=== PATIENT | female | born 1990 | race Caucasian/White ===

== ENCOUNTER 2018-08-08 10:00 | Inpatient (IN) | payer MEDICAID ==
[~2018-08-08] VITALS: Ht 162.6 cm; Wt 102.1 kg
[~2018-08-08 10:00] MED LIST: ACET500C5 PO; CALC-649 PO; CEPH-443 PO; FERR27TA PO; PREN1TAB49 PO; TYL500 PO
[2018-08-08 11:22] VITALS: Ht 162.6 cm; Wt 102.1 kg
[2018-08-08 11:23] VITALS: BP 114/79; PULSE 105; RESP 18
[2018-08-08] MEDS ORDERED: LACTATED RINGER'S 1,000 ML IV PRN (11:25)
[2018-08-08] MEDS ORDERED: OXYTOCIN 30 UNITS/LR 500 ML IV PRN (11:30)
[2018-08-08] MEDS ORDERED: MISOPROSTOL 200 MCG TAB PR PRN (11:30)
[2018-08-08] MEDS ORDERED: BUTORPHANOL 2 MG INJ IV PRN (11:30)
[2018-08-08] MEDS ORDERED: CARBOPROST 250 MCG INJ IM PRN (11:30)
[2018-08-08] MEDS ORDERED: LIDOCAINE 1% (MPF) 30 ML INJ INJ PRN (11:30)
[2018-08-08] MEDS ORDERED: METHYLERGONOVINE 0.2 MG INJ IM PRN (11:30)
[2018-08-08] MEDS ORDERED: OXYTOCIN 30 UNITS/LR 500 ML IV SCH ×3 (11:30→13:30)
[2018-08-08] MEDS ORDERED: IBUPROFEN 600 MG TAB PO PRN (11:30)
[2018-08-08] MEDS: LACTATED RINGER'S 1,000 ML IV SCH ×2 (11:36→18:22)
--- NOTE | 2018-08-08 19:31 | HP ---
Date/Time of Note Date/Time of Note DATE: 08/08/18 TIME: 19:28 OB - History Hx of Present Free Text/Dictation 27-year-old female 5 para 1 AB 3 at 40 weeks gestation admitted for elective induction of labor Last Menstrual Period: Nov 01, 2017 Estimated Due Date: Aug 08, 2018 : 5 Para: 1 Spontaneous : 3 Care: Good Care Ultrasounds: Normal mid trimester US Obstetrical Complications: None Medical Complications: None Past Family/Social History * Past Medical, Surgical, Family and Obstetric Histories reviewed from chart. Blood Type: O+ Rubella: immune RPR/VDRL: Negative GBS Status: Negative HBsAG: Negative OB Admission Exam Vital Signs Vital Signs Vital Signs Date Temp Pulse Resp B/P (MAP) Pulse Ox O2 O2 Flow FiO2 Time Delivery Rate 08/08/18 98.6 105 18 114/79 Room Air 11:23 (91) Physical Exam HEENT: WNL Heart: Rhythm Normal Lungs: Clear, Equal Abdomen: WNL Extremities: Normal Reflexes: Normal Cervical Dilatation: 1cm Effacement: 50% Station: -3 Membranes: Intact Heart Rate: 140's Accelerations: Accelerations Present Decelerations: No Decelerations Varibility: Marked Contractions on Admission: None Last 72 hours Lab Results CBC & BMP 08/08/18 11:35 OB Assessment/Plan Reason for admission: induction of labor Other Assessment: Term gestation Other plan: Start using Pitocin for labor induction or augmentation TREY AYALA MD Aug 08, 2018 19:30
--- NOTE | 2018-08-08 20:27 | PREAC ---
Date/Time of Note Date/Time of Note DATE: 08/08/18 TIME: 20:26 Anesthesia Eval and Record Evaluation Time Pre-Procedure Interview DATE: 08/08/18 TIME: 20:26 Age 27 Sex female NPO: 8 hrs Preoperative diagnosis labor pain Planned procedure epidural Past Medical History Past Medical History: None Surgery & Anesthesia Issues No known issue Meds Anticoagulation: No Beta Chu within 24 hr: No Reason Beta Chu not given: Pt. not on B-Chu Active Scripts Acetaminophen* (Tylophen*) 500 Mg Capsule, 1 CAP PO Q6H PRN for PAIN AND OR ELEVATED TEMP, #20 CAP Prov:PETRONA RICE DEMOLITION ENGINEER 05/05/16 Cephalexin* (Keflex*) 500 Mg Capsule, 500 MG PO QID for 7 Days, CAP Prov:PETRONA RICE DEMOLITION ENGINEER 05/05/16 Acetaminophen* (Tylenol*) 500 Mg Tab, 500 MG PO Q4H PRN for MILD PAIN LEVEL 1-3 for 4 Days, TAB Prov:MARIUM MYERS MD 07/11/15 Reported Medications Calcium Carbonate (Calcium) 1 Tab Tablet, 1 TAB PO DAILY 04/26/11 Vits W-Ca,Fe,Fa(<1MG) () 1 Tab Tablet, PO DAILY 04/26/11 Ferrous Sulfate (Iron) 1 Tab Tablet, PO DAILY 04/26/11 Current Medications Lactated Ringer's 1,000 ml @ 125 mls/hr Q8H IV Last administered on 08/08/18at 18:22; Admin Dose 125 MLS/HR; Start 08/08/18 at 11:25 Butorphanol Tartrate (Stadol) 2 mg Q2H PRN IV PAIN; Start 08/08/18 at 11:30 Lidocaine (Xylocaine 1% (Mpf)) 30 ml ONCE PRN INJ EPISIOTOMY; Start 08/08/18 at 11:30 Oxytocin/Lactated Ringer's 500 ml @ 500 mls/hr ONCE POST IV ; Start 08/08/18 at 11:30 Oxytocin/Lactated Ringer's 500 ml @ 125 mls/hr POST IV ; Start 08/08/18 at 11:30 Ibuprofen (Motrin) 600 mg ONCE PRN PO PAIN LEVEL 1-5; Start 08/08/18 at 11:30 Lactated Ringer's 1,000 ml @ 2,000 mls/hr Q30M PRN IV ANESTHESIA Last administered on 08/08/18at 20:15; Admin Dose 2,000 MLS/HR; Start 08/08/18 at 11:25 Oxytocin/Lactated Ringer's 500 ml @ 0 mls/hr ONCE PRN IV VAGINAL BLEEDING; Start 08/08/18 at 11:30 Methylergonovine Maleate (Methergine) 0.2 mg ONCE PRN IM VAGINAL BLEEDING; Start 08/08/18 at 11:30 Carboprost Tromethamine (Hemabate) 250 mcg ONCE PRN IM VAGINAL BLEEDING; Start 08/08/18 at 11:30 Misoprostol (Cytotec) 1,000 mcg ONCE PRN SC VAGINAL BLEEDING; Start 08/08/18 at 11:30 Oxytocin/Lactated Ringer's 500 ml @ 0 mls/hr FOR AUGMENTATION IV Last administered on 08/08/18at 13:47; Admin Dose 1 MLS/HR; Start 08/08/18 at 13:30 Meds reviewed: Yes Allergies Coded Allergies: No Known Allergies (Verified Allergy, Unknown, 04/13/16) Allergies Reviewed: Yes Labs/Studies Labs Reviewed: Reviewed by anesthesiologist Result Diagram: 08/08/18 1135 Laboratory Tests 08/08/18 11:35 Blood Bank Test 08/08/18 11:35 Antibody Screen NEGATIVE Blood Type O POSITIVE Rh Immune Globulin Candidate NO test: N/A Pre-procedure Exam Last vitals Vital Signs Date Temp Pulse Resp B/P (MAP) Pulse Ox O2 O2 Flow FiO2 Time Delivery Rate 08/08/18 98.6 105 18 114/79 Room Air 11:23 (91) Airway: Adequate mouth opening, Adequate thyromental dist Mallampati: Mallampati II Teeth: Normal Lung: Normal Heart: Normal ASA Physical Status ASA physical status: 2 Emergency: None Pre-operative Attestations Prior to commencing anesthesia and surgery, the patient was re-evaluated, there was verification of: *The patient's identity *The results of appropriate recent lab work and preoperative vital signs *The above evaluation not changing prior to induction *Anesthetic plan, risk benefits, alternative and complications discussed with patient/family; questions answered; patient/family understands, accepts and wi shes to proceed. ASHLEY VIRAMONTES DO Aug 08, 2018 20:27
[2018-08-08] MEDS ORDERED: NALOXONE (0.4 MG/ML) INJ IV PRN (20:30)
[2018-08-08] MEDS ORDERED: FENTAnyl 2MCG/ML-ROPIV 0.2% 100 ML ONE (20:31)
--- NOTE | 2018-08-08 21:30 | PAC ---
Date/Time of Note Date/Time of Note DATE: 08/08/18 TIME: 21:29 Post-Anesthesia Notes Post-Anesthesia Note Last documented vital signs Vital Signs Date Temp Pulse Resp B/P (MAP) Pulse Ox O2 O2 Flow FiO2 Time Delivery Rate 08/08/18 98 90 18 114/70 Room Air 2130 Activity: WNL Respiratory function: WNL Cardiovascular function: WNL Mental status: Baseline Pain reasonably controlled: Yes Hydration appropriate: Yes Nausea/Vomiting absent: Yes ASHLEY VIRAMONTES DO Aug 08, 2018 21:30
[2018-08-09] MEDS: LACTATED RINGER'S 1,000 ML IV SCH ×5 (02:59→18:26)
[2018-08-09] MEDS: FENTAnyl 2MCG/ML-ROPIV 0.2% 100 ML BAG EPI SCH ×3 (04:24→17:55)
--- NOTE | 2018-08-09 14:55 | PN ---
Date/Time of Note Date/Time of Note DATE: 08/09/18 TIME: 14:54 OB Subjective Subjective Subjective Currently has epidural and does not feel contractions OB Objective Objective Objective Vital signs are stable as well as general physical exam Cervix is 80% effaced 4 cm dilated membranes spontaneously ruptured already heart tones are reactive OB Assessment/Plan Reason for admission: induction of labor Other Assessment: Term gestation Other plan: We will continue with Pitocin augmentation of labor TREY AYALA MD Aug 09, 2018 14:55
[2018-08-09] MEDS ORDERED: MINERAL OIL LIGHT 10 ML VIAL TOP ONE (17:30)
--- NOTE | 2018-08-09 19:42 | LDN ---
Date/Time of Note Date/Time of Note DATE: 08/09/18 TIME: 19:32 Delivery Summary Normal spontaneous vaginal delivery of a viable over intact perineum Weeks of Gestation 40 weeks Placenta Delivered: Spontaneously, Intact & Complete Meconium: none Episiotomy: No Perineal laceration: 0 Laceration repair: First-degree perineal laceration was repaired in layers using 2-0 Vicryl on the deeper layers and 2-0 chromic and superficial layer Anesthesia type: Epidural Estimated blood loss: 300 Sponge & Needle done & correct: Yes All needle counts correct: Yes Any foreign bodies felt in the: No Infant Delivery Information Sex Infant Sex: male Apgars 1 Minute: 7 5 Minute: 8 10 Minute: 9 Suctioning Nose & mouth suctioned at matt: Yes Delee suction performed: No Umbilical Cord Umbilical cord with: 3 Vessels Cord presentations: nuchal cord Nuchal cord present X: 1 Cord Blood was obtained: Yes Mother & Baby Disposition Disposition Mom & Baby to Maternity; Good: Yes (Mother and baby were recovering in good condition) Mom transferred to: Other (Paternity) Baby to NICU: No TREY AYALA MD Aug 09, 2018 19:42
[2018-08-09] MEDS ORDERED: KETOROLAC 30 MG INJ IV STA (19:43)
[2018-08-09 21:40] VITALS: BP 128/66; PULSE 74; RESP 19
[2018-08-09] MEDS: LACTATED RINGER'S 1,000 ML IV* SCH (21:46)
[2018-08-09 21:55] VITALS: BP 129/61; PULSE 76; RESP 18
[2018-08-09] MEDS ORDERED: METHYLERGONOVINE 0.2 MG INJ IM PRN (22:00)
[2018-08-09] MEDS ORDERED: ZOLPIDEM 5 MG TAB PO PRN (22:00)
[2018-08-09] MEDS ORDERED: WITCH HAZEL/GLYCERIN PAD PR PRN (22:00)
[2018-08-09] MEDS ORDERED: LANOLIN HPA 1 PKT TOP PRN (22:00)
[2018-08-09] MEDS ORDERED: MISOPROSTOL 200 MCG TAB PR PRN (22:00)
[2018-08-09] MEDS ORDERED: CARBOPROST 250 MCG INJ IM PRN (22:00)
[2018-08-09] MEDS ORDERED: DIBUCAINE 1% 30 GM OINT TOP PRN (22:00)
[2018-08-09] MEDS ORDERED: OXYTOCIN 30 UNITS/LR 500 ML IV PRN (22:00)
[2018-08-09] MEDS ORDERED: HYDROCODONE/APAP (5/325) TAB PO PRN (22:00)
[2018-08-09] MEDS: BENZOCAINE 20% 56 ML SPRAY TOP PRN (22:19)
[2018-08-09] MEDS: HYDROCODONE/APAP (5/325) TAB PO PRN (22:19)
[2018-08-10] VITALS: BP 119/64; PULSE 76; RESP 17
[2018-08-10] MEDS: CEPHALEXIN 500 MG CAP PO SCH ×5 (00:27→23:42)
[2018-08-10] MEDS: IBUPROFEN 600 MG TAB PO SCH ×5 (00:27→23:42)
[2018-08-10] MEDS: HYDROCODONE/APAP (5/325) TAB PO PRN ×3 (03:43→20:58)
[2018-08-10 04:00] VITALS: BP_SYST 112; BP_SYST 98; BP_DIAS 56; BP_DIAS 61; PULSE 62; PULSE 66; RESP 16
[2018-08-10] MEDS: LACTATED RINGER'S 1,000 ML IV* SCH (04:15)
[2018-08-10] MEDS: SENNA/DOCUSATE NA (8.6MG/50MG) TAB PO SCH ×2 (08:27→20:35)
[2018-08-10] MEDS: MAGNESIUM HYDROXIDE 30ML CUP PO SCH ×2 (08:27→20:35)
[2018-08-10 08:47] VITALS: BP 99/62; PULSE 77; RESP 16
[2018-08-10 12:00] VITALS: BP 89/46; PULSE 64; RESP 18
--- NOTE | 2018-08-10 14:15 | DS ---
Date/Time of Note Date/Time of Note Home today or next day DATE: 08/10/18 TIME: 14:09 Obstetrical Discharge Record Final Diagnosis Final Diagnosis: Term delivered Other Final Diagnosis Status post vaginal delivery Vaginal Delivery Obstetrical Delivery: Spontaneous, Laceration, Repaired Complications Augmentation: Yes Condition on Discharge Physical Assessment Last Vitals: See nurse's notes Voiding: Yes Bowel Movement: Yes Breast: Soft, non-tender, Filling Fundus: Firm Abdomen and Incision: Abdomen is soft with firm fundus Episiotomy: Perineum is healing well and appears clean Calf Tenderness: No Patient Condition: Good TREY AYALA MD Aug 10, 2018 14:15
--- NOTE | 2018-08-10 14:16 | PD.PPDC ---
PACK[employer]ING [employer]IC Discharge Instruction Provider Information Physician Information 27-year-old female had vaginal delivery Diagnosis [id number] Final Diagnosis: [id number] Status post vaginal delivery Condition [id number] Patient Condition: [id number] Good Diet [id number] Diet: [id number] Resume Regular Diet Activity/Restrictions [id number] Activity: [id number] Normal Activity May Shower [id number] Restrictions: Vdtzt3s Nothing in the Vagina [id number] Return to Work or School: [id number] Sep 25, 2018 Follow-up Follow-up with Physician: 2, 4, Week/Weeks (In clinic) Return to clinic for [id number] OB Instructions: [id number] Breast Tenderness Depression Comment: Pelvic rest for 6 weeks TREY AYALA MD Aug 10, 2018 14:16
[2018-08-10] MEDS ORDERED: ACET500C5 PO (14:17)
[2018-08-10] MEDS ORDERED: IBUP-1542 PO (14:17)
[2018-08-10 20:00] VITALS: BP 111/60; PULSE 76; RESP 19
[2018-08-11] MEDS: BENZOCAINE 20% 56 ML SPRAY TOP PRN (01:15)
[2018-08-11 04:00] VITALS: BP 93/54; PULSE 77; RESP 17
[2018-08-11] MEDS: HYDROCODONE/APAP (5/325) TAB PO PRN (04:08)
[2018-08-11] MEDS: IBUPROFEN 600 MG TAB PO SCH ×2 (05:45→12:34)
[2018-08-11] MEDS: CEPHALEXIN 500 MG CAP PO SCH ×2 (05:45→12:35)
[2018-08-11 08:00] VITALS: BP 95/52; PULSE 72; RESP 18
[2018-08-11] MEDS ORDERED: VARICELLA VACCINE LIVE/PF 1,350 UNIT/0.5 ML ML SC* ONE (09:00)
[2018-08-11] MEDS: SENNA/DOCUSATE NA (8.6MG/50MG) TAB PO SCH (09:00)
[2018-08-11] MEDS ORDERED: MEASLES,MUMPS,RUBELLA VACCINE INJ SC* ONE (09:00)
[2018-08-11] MEDS ORDERED: DIPHTH/TET/ACEL PERTUSS (ADULT) 0.5 ML VIAL IM* ONE (09:00)
[2018-08-11] MEDS: MAGNESIUM HYDROXIDE 30ML CUP PO SCH (09:00)
== END 2018-08-11 14:15 | disposition home or self-care (01) | DRG 807 ==
LOC: L-D 10:40 → PP1 08-09 21:40
PROVIDERS: ADMIT Obstetrics & Gynecology; ATTEND Obstetrics & Gynecology
PROC: 3E033VJ Introduction of Other Hormone into Peripheral Vein, Percutaneous Approach (ICD-10-PCS; 2018-08-08)
PROC: 10E0XZZ Delivery of Products of Conception, External Approach (ICD-10-PCS; principal; 2018-08-09)
PROC: 0HQ9XZZ Repair Perineum Skin, External Approach (ICD-10-PCS; 2018-08-09)
DX: O69.81X0 Labor and delivery complicated by cord around neck, without compression, not applicable or unspecified (principal); O70.0 First degree perineal laceration during delivery; Z37.0 Single live birth; Z3A.40 40 weeks gestation of pregnancy
CPT/HCPCS: 62319; 76816; 85025; 85610; 85730; 86592; 86706; 86850; 86900; 86901; 99464; J1885; J2590; J3010; J7120